=== PATIENT | male | born 1995 | race Caucasian/White ===

== ENCOUNTER → 2018-11-19 | Outpatient (CLI) | payer OTHER ==
[~2018-11-19] VITALS: Ht 180.3 cm; Wt 104.3 kg
[2018-11-19] VITALS (9 sets, daily range): BP systolic 93–149; BP diastolic 56–84; PULSE 60–92
--- NOTE | 2018-11-19 09:40 | NUR ---
Pt to ct per ambulation, pt placed on cart in supine position. Monitors applied to pt.
--- NOTE | 2018-11-19 09:45 | NUR ---
Dr Sheehan into room and talks with pt regarding procedure.
--- NOTE | 2018-11-19 09:55 | NUR ---
Specimen obtained by Dr Sheehan and placed in formalin and RPMI. Specimens labeled.
--- NOTE | 2018-11-19 11:16 | NUR ---
Pt out to car per ambulation. Denies pain at this time. Discharge instructions gone over prior to leaving and copy of instructions given to pt. Verbalized understanding of instructions.
== END ==
LOC: COL.RAD 08:35
DX: R59.0 Localized enlarged lymph nodes (principal)

== ENCOUNTER 2018-12-08 11:27 | Day surgery (SDC) | payer OTHER, BC ==
[~2018-12-08] VITALS: Ht 180.3 cm; Wt 104.2 kg
[2018-12-08 12:05] VITALS: BP 146/75; PULSE 97; TEMP 97.9
[2018-12-08] MEDS ORDERED: NORCO 325 MG-51 TAB PO (12:13)
--- NOTE | 2018-12-08 12:14 | NUR ---
TO RM AT 1134- CALL LIGHT IN REACH FATHER AT BEDSIDE.
[2018-12-08 16:43] VITALS: BP 129/65; PULSE 64; TEMP 98.1
--- NOTE | 2018-12-08 16:43 | NUR ---
TO RM 1 PER CART FROM PACU. ALERT ORIENTED X3, TALKING TO STAFF AND FATHER. BANDAIDES CLEAN DRY INTACT. DENIES NAUSEA AND VOMITING C/O PAIN 01/18 RECEIVED WATER AND TAKING SIPS.
[2018-12-08 16:55] VITALS: BP 137/67; PULSE 65
--- NOTE | 2018-12-08 16:55 | NUR ---
RECEIVED DIPTI. PUDDING - ATE 100% NO OTHER CHANGES
[2018-12-08 17:15] VITALS: BP 137/63; PULSE 60
--- NOTE | 2018-12-08 17:15 | NUR ---
UP AMBULATED TO BATHROOM. VOIDED AND TOLERATED WELL.
--- NOTE | 2018-12-08 17:40 | NUR ---
RECEIVED DISCHARGE INSTRUCTIONS AND A FOLLOW UP APPOINTMENT . DISCONTINUED IV AND INT.
--- NOTE | 2018-12-08 17:45 | NUR ---
DISCHARGED PER WC BY NURSING STAFF TO PRIVATE CAR IN CARE OF FATHERSADE
== END 2018-12-08 18:12 | disposition home or self-care (01) ==
LOC: SDCO 11:27
DX: C85.80 Other specified types of non-Hodgkin lymphoma, unspecified site (principal); F17.210 Nicotine dependence, cigarettes, uncomplicated; R16.2 Hepatomegaly with splenomegaly, not elsewhere classified; Z83.3 Family history of diabetes mellitus; Z80.7 Family history of other malignant neoplasms of lymphoid, hematopoietic and related tissues; Z80.3 Family history of malignant neoplasm of breast
CPT/HCPCS: J0690; J1100; J1885; J2405; J2704; J2710; J3010; J7120

== ENCOUNTER → 2018-12-19 | Outpatient (CLI) | payer OTHER ==
[~2018-12-19] MED LIST: NORCO 325 MG-51 TAB PO
== END ==
LOC: COL.VAS 09:50
DX: Z51.11 Encounter for antineoplastic chemotherapy (principal); R59.1 Generalized enlarged lymph nodes